=== PATIENT | female | born 1985 | race Asian ===

== ENCOUNTER 2018-09-06 15:36 | Emergency (ER) | payer OTHER ==
[~2018-09-06] VITALS: Ht 180.3 cm; Wt 86.4 kg
[2018-09-06 16:27] VITALS: BP 133/81
== END 2018-09-06 17:48 | disposition home or self-care (01) ==
LOC: ER 15:36
DX: S40.021A Contusion of right upper arm, initial encounter (principal); X50.1XXA Overexertion from prolonged static or awkward postures, initial encounter; Y93.89 Activity, other specified; Y92.89 Other specified places as the place of occurrence of the external cause; Y99.9 Unspecified external cause status
CPT/HCPCS: 73080; 73090; 73130; 99283